=== PATIENT | male | born 1945 | race Caucasian/White ===

== ENCOUNTER 2018-10-22 18:55 | Emergency (ER) | payer MEDICARE ==
--- NOTE | 2018-10-22 19:34 | EDM.PDOC ---
ED HPI GENERAL MEDICAL PROBLEM - General Chief Complaint: Gastrointestinal Problem Stated Complaint: BLOOD IN STOOL Time Seen by Provider: 10/22/18 19:34 Source of Information: Reports: Patient History Limitations: Reports: No Limitations - History of Present Illness INITIAL COMMENTS - FREE TEXT/NARRATIVE: pt arrived stating that he was at [facility] and went to the BR and he had a large amount of blood with the stool. He did not have pain or cramping. The pt had a colonoscopy about 1 week ago and several polyps removed. He had done well since that time. Onset: Today, Sudden Duration: Hour(s): Location: Reports: Abdomen, Other (pt is having GI bleeding. ) Associated Symptoms: Reports: Weakness - Related Data Allergies Allergy/AdvReac Type Severity Reaction Status Date / Time No Known Allergies Allergy Verified 10/22/18 19:29 Home Meds: Home Meds Aspirin [Halfprin] 81 mg PO DAILY 10/22/18 [History] Cholecalciferol (Vitamin D3) [Vitamin D3] 1 cap PO DAILY 10/22/18 [History] Furosemide [Lasix] 40 mg PO DAILY 10/22/18 [History] Hydrochlorothiazide [Microzide] 12.5 mg PO DAILY 10/22/18 [History] Isosorbide Mononitrate [Imdur] 60 mg PO DAILY 10/22/18 [History] Lisinopril [Zestril] 20 mg PO DAILY 10/22/18 [History] Lutein/Min/Vit C/Vit E Acetate [Ocuvite Lutein] 1 cap PO BID 10/22/18 [History] Magnesium Oxide 420 mg PO TID 10/22/18 [History] Metoprolol Succinate [Toprol XL] 25 mg PO DAILY 10/22/18 [History] Mycophenolate Mofetil [Cellcept] 750 mg PO BID 10/22/18 [History] Nitroglycerin [Nitrostat] 1 tab SL ASDIRECTED 10/22/18 [History] Ranitidine [Zantac] 150 mg PO BID 10/22/18 [History] Sotalol [Betapace] 120 mg PO BID 10/22/18 [History] Tacrolimus [Prograf] 2 cap PO BEDTIME 10/22/18 [History] Tacrolimus [Prograf] 3 cap PO WITHBREAKFAST 10/22/18 [History] Terazosin [Hytrin] 4 mg PO BEDTIME 10/22/18 [History] amLODIPine [Norvasc] 5 mg PO BEDTIME 10/22/18 [History] atorvaSTATin [Lipitor] 20 mg PO BEDTIME 10/22/18 [History] ED ROS GENERAL - Review of Systems Review Of Systems: See Below Constitutional: Reports: No Symptoms HEENT: Reports: No Symptoms Respiratory: Reports: No Symptoms Cardiovascular: Reports: No Symptoms Endocrine: Reports: No Symptoms GI/Abdominal: Reports: Bloody Stool, Other (pt has had at least 2 bllody stools with a fair amount of blood. ) : Reports: No Symptoms Musculoskeletal: Reports: No Symptoms ED EXAM, GI/ABD - Physical Exam Exam: See Below Text/Narrative:: Pt has good vital signs. He had a bloody stool while he was waiting in the waiting room. He had a colonoscopy 1 week ago. At that time he had a number of polyps removed. Exam Limited By: No Limitations General Appearance: Alert, Anxious, Mild Distress Ears: Normal TMs Nose: Normal Inspection Throat/Mouth: Normal Inspection Head: Atraumatic Neck: Normal Inspection Respiratory/Chest: No Respiratory Distress GI/Abdominal Exam: Soft, Non-Tender (Male) Exam: Deferred Back Exam: Other (no masses felt, alot clots present in the rectum, darker looking. ) Extremities: Normal Inspection Course - Vital Signs Last Recorded V/S: Last Vital Signs Temp 35.9 C 10/22/18 19:40 Pulse 61 10/22/18 19:40 Resp 14 10/22/18 19:40 BP 169/67 H 10/22/18 19:40 Pulse Ox 93 L 10/22/18 19:40 - Orders/Labs/Meds Orders: Active Orders 24 hr Category Date Time Status Sodium Chloride 0.9% [Normal Saline] 1,000 ml Med 10/22/18 20:45 Ordered IV ASDIRECTED Medication Orders Sodium Chloride (Normal Saline) 1,000 mls @ 999 mls/hr IV ASDIRECTED MASON Labs: Laboratory Tests 10/22/18 10/22/18 10/22/18 Range/Units 19:32 19:32 19:32 WBC 7.0 (4.5-11.0) K/uL RBC 4.72 (4.30-5.90) M/uL Hgb 13.6 (12.0-15.0) g/dL Hct 42.0 (40.0-54.0) % MCV 89 (80-98) fL MCH 29 (27-31) pg MCHC 32 (32-36) % Plt Count 188 (150-400) K/uL Neut % (Auto) 63 (36-66) % Lymph % (Auto) 21 L (24-44) % [place] % (Auto) 11 H (2-6) % Eos % (Auto) 5 H (2-4) % Baso % (Auto) 1 (0-1) % Sodium 138 L (140-148) mmol/L Potassium 4.4 (3.6-5.2) mmol/L Chloride 104 (100-108) mmol/L Carbon Dioxide 23 (21-32) mmol/L Anion Gap 15.4 H (5.0-14.0) mmol/L BUN 32 H (7-18) mg/dL Creatinine 1.2 (0.8-1.3) mg/dL Est Cr Clr Drug Dosing 60.18 mL/min Estimated GFR (MDRD) 59 L (>60) Glucose 196 H (74-106) mg/dL Calcium 8.8 (8.5-10.1) mg/dL Total Bilirubin 0.6 (0.2-1.0) mg/dL AST 22 (15-37) U/L ALT 27 (12-78) U/L Alkaline Phosphatase 57 (46-116) U/L C-Reactive Protein 0.21 (0.0-0.3) mg/dL Total Protein 6.4 (6.4-8.2) g/dL Albumin 3.2 L (3.4-5.0) g/dL Globulin 3.2 (2.3-3.5) g/dL Albumin/Globulin Ratio 1.0 L (1.2-2.2) Meds: Medications Generic Name Dose Route Start Last Admin Trade Name Freq PRN Reason Stop Dose Admin Sodium Chloride 1,000 mls @ 999 mls/hr 10/22/18 20:45 Normal Saline IV ASDIRECTED MASON - Re-Assessments/Exams Free Text/Narrative Re-Assessment/Exam: 10/22/18 20:58 lab work looks good, hg is 13. Departure - Departure Time of Disposition: 20:58 Disposition: Home, Self-Care 01 Condition: Fair Clinical Impression: Rectal bleeding, Colonoscopy causing post-procedural bleeding - Discharge Information Referrals: PCP,None [Primary Care Provider] - Forms: ED Department Discharge Care Plan Goals: transfer to [facility] - My Orders Last 24 Hours: My Active Orders 10/22/18 20:45 Sodium Chloride 0.9% [Normal Saline] 1,000 ml IV ASDIRECTED - Assessment/Plan Last 24 Hours: My Active Orders 10/22/18 20:45 Sodium Chloride 0.9% [Normal Saline] 1,000 ml IV ASDIRECTED
[2018-10-22] MEDS ORDERED: Sodium Chloride 0.9% 1,000 ML IV SCH (20:45)
== END 2018-10-22 21:38 | disposition home or self-care (01) ==
LOC: JP.ED 18:55
DX: K91.840 Postprocedural hemorrhage of a digestive system organ or structure following a digestive system procedure (principal); Z79.899 Other long term (current) drug therapy; Z79.82 Long term (current) use of aspirin
CPT/HCPCS: 36415; 80053; 85025; 86140; 96360; 99284; J7030; 99285